=== PATIENT | male | born 1980 | race Hispanic/Latino ===

== ENCOUNTER 2025-07-29 13:47 | Inpatient (IN) | payer SELFPAY ==
[2025-07-29 14:23] LABS: #Basophils Less than 0.03 10x3/uL (0.0-0.2); #Eosinophils Less than 0.03 10x3/uL (0.0-0.7); #Monocytes 1.43 10x3/uL (0.11-0.59); #Neutrophils 13.41 10x3/uL (1.40-6.50); %Basophils 0.1 % (0.0-1.0); %Eosinophils 0.1 % (0.0-10.0); %Lymphocytes 12.5 % (21.0-51.0); %Monocytes 8.3 % (0.0-10.0); %Neutrophils 77.5 % (42.0-75.0); Hematocrit 37.2 % (42.0-52.0); Hemoglobin 12.0 g/dL (14.0-18.0); Mean Corpuscular Hemoglobin 30.8 pg (27.0-31.0); Mean Corpuscular Volume 95.6 fL (78.0-98.0); Platelet Count 430 10x3/uL (130-400); Red Blood Cell (RBC) Count 3.89 mill/uL (4.70-6.10); White Blood Cell (WBC) Count 17.29 10x3/uL (4.8-10.8)
[2025-07-29 14:37] LABS: ALT (SGPT) 10 U/L (Less than 45); AST (SGOT) 28 U/L (11-34); Albumin 3.6 g/dL (3.1-4.5); Alkaline Phosphatase 84 U/L (40-110); Anion Gap 14 mmol/L (10-20); BUN (Urea Nitrogen) 22 mg/dL (8.9-20.6); Bilirubin, Total 0.2 mg/dL (0.3-1.2); Calc. Creatinine Clearance 0 mL/min (70-130); Calcium 9.2 mg/dL (7.8-10.44); Carbon Dioxide 21 mmol/L (22-29); Chloride 106 mmol/L (98-107); Globulin 3.6 g/dL (2.4-3.5); Glucose 176 mg/dL (70-105); Potassium 3.1 mmol/L (3.5-5.1); Sodium 138 mmol/L (136-145)
[2025-07-29 14:40] LABS: INR-International Normal Ratio 1.0; PTT 29.3 sec (22.9-36.1); Prothrombin Time 13.0 sec (12.0-14.7)
[2025-07-29] MEDS ORDERED: Ketorolac Tromethamine 30 MG (1 mL) VIAL ONE (16:30)
[2025-07-29] MEDS ORDERED: Acetaminophen 325 MG TAB PO PRN (16:50)
[2025-07-29] MEDS ORDERED: Milk Of Magnesia 30 ML UDCUP PO PRN (16:50)
[2025-07-29] MEDS ORDERED: Meperidine HCl/PF 25 MG (1 mL) VIAL IM PRN (16:56)
[2025-07-29 17:19] LABS: Bacteria/HPF None Seen HPF (None Seen); CAUTI Indications for Culture < 2yrs of age; Glucose, Urine (Dipstick) Normal (Negative); Leukocyte Negative Leu/uL (Negative); Protein, Urine (Dipstick) Negative (Neg-Trace); RBC/HPF 0-3 HPF (0-3); Specific Gravity, Urine 1.015 (1.002-1.036); WBC/HPF 0-3 HPF (0-3)
[2025-07-29] MEDS ORDERED: fentaNYL PF 100 MCG/2 ML SYRINGE ONE ×2 (21:09→22:32)
[2025-07-29] MEDS ORDERED: Ondansetron PF 4 MG/2 ML Vial ONE (21:09)
[2025-07-29] MEDS ORDERED: PROPOFOL 20 ML ONE (21:09)
[2025-07-29] MEDS ORDERED: Lidocaine 1% PF 5 ML VIAL ONE (21:09)
[2025-07-29] MEDS ORDERED: Glucagon 1 MG/ML KIT IM PRN (21:30)
[2025-07-29] MEDS ORDERED: Dextrose 50% Abboject 50 ML SYRINGE SLOW IVP PRN (21:30)
[2025-07-29 22:33] VITALS: BMI 25.4
[2025-07-30] MEDS: VANCOMYCIN 1.75 GM/350 ML Premix BAG IVPB SCH (00:44)
[2025-07-30] MEDS: Aspirin 81 mg Enteric Coated Tablet PO SCH (00:45)
[2025-07-30] MEDS: Gentamicin Sulfate 80 MG in Premix 1 BAG IVPB SCH (00:45)
[2025-07-30] MEDS: Vancomycin 1 GM in Premix 1 BAG IVPB SCH ×2 (00:45→02:06)
[2025-07-30] MEDS: HYDROcodone/Acetaminophen 5/325 mg Tablet PO PRN (00:50)
[2025-07-30] MEDS: TETANUS AND DIPHTHERIA TOX/PF 0.5 ML DISP.SYRIN IM SCH (04:35)
[2025-07-30 04:59] LABS: #Basophils 0.03 10x3/uL (0.0-0.2); #Eosinophils 0.05 10x3/uL (0.0-0.7); #Monocytes 0.93 10x3/uL (0.11-0.59); #Neutrophils 4.97 10x3/uL (1.40-6.50); %Basophils 0.3 % (0.0-1.0); %Eosinophils 0.5 % (0.0-10.0); %Lymphocytes 32.9 % (21.0-51.0); %Monocytes 10.2 % (0.0-10.0); %Neutrophils 54.5 % (42.0-75.0); Hematocrit 31.7 % (42.0-52.0); Hemoglobin 10.1 g/dL (14.0-18.0); Mean Corpuscular Hemoglobin 30.9 pg (27.0-31.0); Mean Corpuscular Volume 96.9 fL (78.0-98.0); Platelet Count 365 10x3/uL (130-400); Red Blood Cell (RBC) Count 3.27 mill/uL (4.70-6.10); White Blood Cell (WBC) Count 9.13 10x3/uL (4.8-10.8)
[2025-07-30 05:20] LABS: Vancomycin, Random 22.3 ug/mL (See Comment)
[2025-07-30] MEDS: TETANUS, DIPHTHERIA TOX,ADULT (TDVAX) 0.5 ML VIAL IM ONE (05:27)
[2025-07-30] MEDS ORDERED: Meperidine HCl/PF 25 MG (1 mL) VIAL IM PRN (15:07)
[2025-07-30] MEDS: Acetaminophen/Codeine 30-300mg Tablet PO PRN (16:47)
[2025-07-30 17:57] LABS: INR-International Normal Ratio 0.9; Prothrombin Time 12.5 sec (12.0-14.7)
[2025-07-30 17:58] LABS: PTT 28.2 sec (22.9-36.1)
[2025-07-30] MEDS: Ketorolac Tromethamine 30 MG (1 mL) VIAL IVP PRN (22:24)
[2025-07-31 06:08] LABS: Vancomycin, Random 18.2 ug/mL (See Comment)
[2025-07-31 06:12] LABS: Anion Gap 12 mmol/L (10-20); BUN (Urea Nitrogen) 19 mg/dL (8.9-20.6); Calc. Creatinine Clearance 143 mL/min (70-130); Calcium 9.1 mg/dL (7.8-10.44); Carbon Dioxide 27 mmol/L (22-29); Chloride 104 mmol/L (98-107); Glucose 125 mg/dL (70-105); Potassium 4.1 mmol/L (3.5-5.1); Sodium 139 mmol/L (136-145)
[2025-08-01 05:16] LABS: Vancomycin, Random 10.0 ug/mL (See Comment)
[2025-08-01 05:19] LABS: Anion Gap 9 mmol/L (10-20); BUN (Urea Nitrogen) 20 mg/dL (8.9-20.6); Calc. Creatinine Clearance 139 mL/min (70-130); Calcium 9.3 mg/dL (7.8-10.44); Carbon Dioxide 31 mmol/L (22-29); Chloride 101 mmol/L (98-107); Glucose 113 mg/dL (70-105); Potassium 4.5 mmol/L (3.5-5.1); Sodium 136 mmol/L (136-145)
[2025-08-01] MEDS ORDERED: Bupivacaine 0.25% HCL 30 ML VIAL ONE (06:22)
[2025-08-01] MEDS ORDERED: Bacitracin Zinc Ointment 30 gm TUBE ONE (06:22)
[2025-08-01] MEDS ORDERED: Lidocaine 1% PF 5 ML VIAL ONE (07:13)
[2025-08-01] MEDS ORDERED: PROPOFOL 20 ML ONE (07:13)
[2025-08-01] MEDS ORDERED: Glycopyrrolate 0.2 MG/ML 5 ML SYRINGE ONE (07:28)
[2025-08-01] MEDS ORDERED: Ondansetron PF 4 MG/2 ML Vial ONE ×2 (07:29→08:10)
[2025-08-01] MEDS ORDERED: Vancomycin 1 GM/200 ML (FROZEN) BAG ONE (07:30)
[2025-08-01] MEDS ORDERED: Famotidine/PF 20 mg/2ml Vial ONE (07:31)
[2025-08-01] MEDS ORDERED: SUCCINYLCHOLINE/SOD CL,ISO/PF 200 MG/10 ML SYRINGE FS ONE (07:42)
[2025-08-01] MEDS ORDERED: PHENYLEPHRINE-NS 100 MCG/ML 10 ML SYRINGE ONE (07:52)
[2025-08-01] MEDS: Vancomycin 1 GM in Premix 1 BAG IVPB SCH (08:00)
[2025-08-01] MEDS ORDERED: fentaNYL PF 100 MCG/2 ML SYRINGE ONE (08:50)
[2025-08-01] MEDS: Ondansetron PF 4 MG/2 ML Vial SLOW IVP PRN (13:12)
[2025-08-01] MEDS ORDERED: Ketorolac Tromethamine 30 MG (1 mL) VIAL IVP PRN (17:20)
[2025-08-01] MEDS: Cephalexin 250 MG CAP PO SCH (18:48)
[2025-08-01] MEDS: Gabapentin 300 MG CAP PO SCH (21:30)
[2025-08-02 05:03] LABS: Anion Gap 15 mmol/L (10-20); BUN (Urea Nitrogen) 21 mg/dL (8.9-20.6); Calc. Creatinine Clearance 131 mL/min (70-130); Calcium 9.6 mg/dL (7.8-10.44); Carbon Dioxide 30 mmol/L (22-29); Chloride 98 mmol/L (98-107); Glucose 100 mg/dL (70-105); Potassium 4.5 mmol/L (3.5-5.1); Sodium 138 mmol/L (136-145)
[2025-08-02 08:15] VITALS: TEMP 98.6
[2025-08-02 11:44] VITALS: BP 123/84
== END 2025-08-02 11:20 | disposition home or self-care (01) | DRG 256 ==
LOC: ERS 13:47 → SURG A 16:50
PROVIDERS: ADMIT Orthopaedic Surgery Hand Surgery; ATTEND Orthopaedic Surgery Hand Surgery
PROC: 3E03329 Introduction of Other Anti-infective into Peripheral Vein, Percutaneous Approach (ICD-10-PCS; 2025-07-29)
PROC: 3E0234Z Introduction of Serum, Toxoid and Vaccine into Muscle, Percutaneous Approach (ICD-10-PCS; 2025-07-29)
PROC: 0X6T0Z2 Detachment at Left Ring Finger, Mid, Open Approach (ICD-10-PCS; principal; 2025-07-30)
PROC: 0PBV0ZZ Excision of Left Finger Phalanx, Open Approach (ICD-10-PCS; 2025-08-01)
DX: E11.52 Type 2 diabetes mellitus with diabetic peripheral angiopathy with gangrene (principal); I96 Gangrene, not elsewhere classified; F17.210 Nicotine dependence, cigarettes, uncomplicated; A49.01 Methicillin susceptible Staphylococcus aureus infection, unspecified site; M48.07 Spinal stenosis, lumbosacral region; E11.65 Type 2 diabetes mellitus with hyperglycemia; M48.061 Spinal stenosis, lumbar region without neurogenic claudication; Z86.718 Personal history of other venous thrombosis and embolism; Z86.711 Personal history of pulmonary embolism; L03.012 Cellulitis of left finger; Z23 Encounter for immunization
CPT/HCPCS: 36415; 36416; 71045; 72100; 80048; 80053; 80202; 81001; 83036; 83605; 84484; 85025; 85610; 85730; 86141; 87040; 87070; 87076; 87077; 87186; 87205; 88305; 88311; 90714; 93005; 94760; 96365; 96367; 96375; J0665; J1580; J1885; J2250; J2270; J2405; J2704; J3010; J3372; J3373; J3375; J7030